=== PATIENT | male | born 1985 | race Caucasian/White ===

== ENCOUNTER 2024-03-14 14:42 | Outpatient (CLI) | payer BC, SELFPAY ==
[2024-03-14 14:58] LABS: Hematocrit 47.1 % (42.0-52.0); Hemoglobin 16.2 g/dL (14.0-18.0); Mean Corpuscular HGB Conc 34.4 g/dl (32-36); Mean Corpuscular Hemoglobin 30.7 pg (26-34); Mean Corpuscular Volume 89.4 fl (80-100); Mean Platelet Volume 8.6 fl (7.4-10.4); Platelet Count Result 241 k/mm3 (150-375); Red Blood Count 5.27 M/mm3 (4.6-6.20); Red Cell Distribution Width 13.4 % (11.5-14.5)
[2024-03-14 15:14] LABS: Hemoglobin A1C 5.5 % (<5.7)
[2024-03-14 15:41] LABS: Alanine Aminotransferase 20 U/L (6-50); Albumin Level 4.3 g/dL (3.5-5.1); Alkaline Phosphatase 85 U/L (38-126); Anion Gap 9 mmol/L (4-12); Aspartate Amino Transferase 28 U/L (17-59); Bilirubin,Total 0.3 mg/dL (0.2-1.3); Blood Urea Nitrogen 14 mg/dL (9-20); Carbon Dioxide 27 mmol/L (22-30); Chloride 102 mmol/L (98-107); Cholesterol 218 mg/dL (0-200); Estimated Glomerular Filt Rate > 60; Glucose 102 mg/dL (65-110); HDL Direct 50 mg/dL; Potassium 3.5 mmol/L (3.4-5.0); Sodium 138 mmol/L (137-145); Triglycerides 141 mg/dL (<150)
[2024-03-14 15:53] LABS: LDL Cholesterol Direct 133 mg/dL
[2024-03-14 15:59] LABS: Vitamin D 25 Hydroxy 45.1 ng/mL
[2024-03-14 16:09] LABS: Prostate Specific Antigen 1.4 ng/mL (< OR = 4.0)
[2024-03-14 16:44] LABS: Folic Acid 7.9 ng/mL (2.76->20)
== END 2024-03-14 14:43 | disposition home or self-care (01) ==
PROVIDERS: PCP Nurse Practitioner Family; Visit Provider Nurse Practitioner Family
DX: Z00.00 Encounter for general adult medical examination without abnormal findings (principal); E78.5 Hyperlipidemia, unspecified; F17.210 Nicotine dependence, cigarettes, uncomplicated; G47.9 Sleep disorder, unspecified; I10 Essential (primary) hypertension; R06.02 Shortness of breath; R07.9 Chest pain, unspecified; R35.1 Nocturia; Z76.89 Persons encountering health services in other specified circumstances; R53.83 Other fatigue; Z13.21 Encounter for screening for nutritional disorder; Z68.29 Body mass index [BMI] 29.0-29.9, adult
CPT/HCPCS: 36415; 80053; 80061; 82306; 82607; 82746; 83036; 84153; 85027

== ENCOUNTER 2024-05-01 13:40 | Outpatient (CLI) | payer BC, SELFPAY ==
--- NOTE | 2024-05-01 14:32 | ECG_ITS ---
Test Date: 2024-05-01 14:49:18 Measurements Intervals [place] Rate: 106 P: 65 [place]: 157 QRS: 92 QRSD: 100 T: 6 QT: 327 QTc: 435 Interpretive Statements SINUS TACHYCARDIA POSSIBLE LEFT ATRIAL ENLARGEMENT [-0.1mV P WAVE IN V1/V2] BORDERLINE RIGHT AXIS DEVIATION [QRS AXIS > 90] CANNOT RULE OUT PREVIOUS ANTEROSEPTAL INFARCTION ABNORMAL ECG WARNING: DATA QUALITY MAY AFFECT INTERPRETATION No previous ECG available for comparison Electronically Signed On 05-02-2024 07:09:40 CDT by Amilcar Astorga M.D.
--- NOTE | 2024-05-02 14:42 | WPDPFTINT ---
PFT Procedure Performed PFT Procedure Performed Spirometry with Pre/Post Bronchodilator Plethysmography (Lung Vol) Diffusing Cap (DLCO) Flow Vol Loop PFT Interpretation Lung volumes were measured with the body plethysmography method. Lung volumes are unremarkable. Spirometry showed normal forced vital capacity, normal FEV1, but diminished mid expiratory flow rates and a diminished FEV1 to FVC ratio of 65% consistent with obstructive airway disease. Following administration of a bronchodilator there was no significant increase in expiratory flow rates. Lung diffusion capacity is within the normal range at 95% predicted. The flow-volume loop is essentially unremarkable. Impression: Mild obstructive airway disease with no response to bronchodilators on this testing. Lung diffusion capacity within the normal range.
== END 2024-05-01 13:41 | disposition home or self-care (01) ==
LOC: ANHPFT 13:43
PROVIDERS: PCP Nurse Practitioner Family; Visit Provider Nurse Practitioner Family
DX: R94.31 Abnormal electrocardiogram [ECG] [EKG] (principal); J98.8 Other specified respiratory disorders; R06.02 Shortness of breath; R07.9 Chest pain, unspecified; I10 Essential (primary) hypertension; F17.210 Nicotine dependence, cigarettes, uncomplicated
CPT/HCPCS: 93005; 94060; 94726; 94729

== ENCOUNTER 2024-11-07 19:03 | Emergency (ER) | payer BC, SELFPAY ==
[2024-11-07 19:09] VITALS: BP 156/105; PULSE 104; RESP 20; TEMP 36.9; O2SAT 99
--- NOTE | 2024-11-07 19:26 | ED.SKABFB ---
HPI - Skin/Abscess/Foreign Bdy General Chief complaint: Skin/Abscess/Foreign Body Stated complaint: Rash On Ears/Arms Time Seen by Provider: 11/07/24 19:19 Source: patient, family and RN notes reviewed Mode of arrival: ambulatory Limitations: no limitations History of Present Illness HPI narrative: Patient presents today complaining of a rash to the bilateral forearms and bilateral ears that was noted today. Denies itch or pain. Denies exposures to new products at home, new plant or animal exposures, new food or medications. Significant other applied some aloe cream today without improvement of rash. 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 Related Data Home Medications ?Medication ?Instructions ?Recorded ?Confirmed ?Last Taken ?Type lisinopril 10 mg tablet 10 mg PO DAILY 03/14/24 03/14/24 Unknown History atorvastatin 20 mg tablet mg 11/07/24 Unknown History Allergies Allergy/AdvReac Type Severity Reaction Status Date / Time No Known Allergies Allergy Verified 11/07/24 19:05 Review of Systems Review of Systems: CONSTITUTIONAL: Denies body aches, fever, chills, or sweats. EYES: Denies visual changes, redness, or discharge. ENT: Denies rhinorrhea, congestion, sore throat, or otalgia. CARDIOVASCULAR: Denies chest pain, palpitations, or edema. RESPIRATORY: Denies cough or dyspnea. GASTROINTESTINAL: Denies abdominal pain, nausea, vomiting, or diarrhea. GENITOURINARY: Denies dysuria or hematuria. SKIN: + rash MUSCULOSKELETAL: Denies back pain, joint pain, or myalgia. NEUROLOGIC: Denies headache, numbness, tingling, or weakness. PSYCH: Denies depression or anxiety. PMFSH Social History Social History Smoking status: Current every day smoker Comments At time of signature, I have reviewed and agree with nursing past medical, surgical, social and family history unless otherwise noted. Please see nursing chart for further information. There is no relevant family history pertinent to the presenting complaint Exam Narrative: GENERAL: Well-appearing, well-nourished, and in no acute distress. HEAD: Normocephalic, atraumatic. EYES: EOMI. No redness or drainage. Conjunctivae normal. ENT: Mucous membranes pink and moist. NECK: Normal AROM. CHEST: No respiratory distress. EXTREMITIES: Normal range of motion. No edema. SKIN: Warm, dry.. Capillary refill normal. Normal skin turgor. Small, round, flat papules that are skin colored, scattered over the bilateral forearms without evidence of infection. No erythema, induration, drainage. Same lesions to the bilateral external ears posteriorly, significantly more on the left than the right. NEURO: No focal deficits. Alert and oriented x3. Gait steady. PSYCH: Normal affect. No signs of depression or anxiety. Course Course Level of Care: Express Care Visit Vital Signs Vital signs: Vital Signs Temperature 98.4 F 11/07/24 19:09 Pulse Rate 104 H 11/07/24 19:09 Respiratory Rate 20 11/07/24 19:09 Blood Pressure 156/105 H 11/07/24 19:09 Pulse Oximetry 99 11/07/24 19:09 Oxygen Delivery Room Air 11/07/24 19:09 Temperature 98.4 F 11/07/24 19:09 Pulse Rate 104 H 11/07/24 19:09 Respiratory Rate 20 11/07/24 19:09 Blood Pressure 156/105 H 11/07/24 19:09 Pulse Oximetry 99 11/07/24 19:09 Oxygen Delivery Room Air 11/07/24 19:09 Reviewed. Patient has not taken his hypertensive medication today. MDM - Skin/Abscess/Foreign Bdy MDM Narrative Medical decision making narrative: Etiology of patient's rash is unclear, but rash seems benign. Using shared decision-making, watchful waiting is recommended as rash is not bothering patient. Recommend following up in 1 week if symptoms persist, or sooner if symptoms worsen. Anticipatory guidance given. Differential Diagnosis Differential diagnosis: Likely abscess of skin or subcutaneous tissue, viral exanthem, dermatophytosis, urticaria, cellulitis, eczema and contact dermatitis Critical Care Time Critical Care Time Critical Care Time: No Discharge Plan Discharge Clinical Impression: Rash Patient Disposition: Home Condition: Stable Instructions: Acute Rash (ED) Additional Instructions: The cause of your rash is unclear, but appears benign at this time. Continue to monitor for the next week, but follow-up if symptoms persist or worsen. Your blood pressure was elevated above 120/80 today at Urgent Care. This puts you above the threshold for follow up. Please schedule a followup visit with your personal physician as soon as possible, for further evaluation and treatment. Even blood pressure exceeding 120/80 may indicate pre-hypertension. Patient Language: [place] Prescriptions: No Action atorvastatin 20 mg tablet lisinopril 10 mg tablet 10 mg PO DAILY Follow-up/Referrals: Onur,ABEL Pillai [Primary Care Provider] - Time of Disposition: 19:26
== END 2024-11-07 19:30 | disposition home or self-care (01) ==
PROVIDERS: Emergency Provider Nurse Practitioner; PCP Physician Assistant
DX: R21 Rash and other nonspecific skin eruption (principal); F17.200 Nicotine dependence, unspecified, uncomplicated
CPT/HCPCS: 99211; G0463